=== PATIENT | female | born 1985 | race Caucasian/White ===

== ENCOUNTER 2025-08-16 19:09 | Emergency (ER) | payer MEDICAID ==
[~2025-08-16] VITALS: Ht 157.5 cm; Wt 97.8 kg
[2025-08-16 20:03] LABS: MEAN PLATELET VOLUME 7.2 FL (7.4-10.4); RED CELL DISTRIBUTION WIDTH 12.8 % (11.5-14.5)
[2025-08-16 20:19] LABS: CREATININE 0.81 MG/DL (0.40-0.90); TOTAL CARBON DIOXIDE 31.4 MMOL/L (24-32); eCRCL 74 ML/MIN; eGFR 79 ML/MIN
[2025-08-16 20:39] LABS: URINE HCG NEGATIVE (NEG)
[2025-08-16 20:55] LABS: LEUKOCYTE ESTERASE ,URINE NEGATIVE (Neg); NITRITES, URINE NEGATIVE (Neg); OCCULT BLOOD,URINE LARGE (Neg)
[2025-08-16 21:21] LABS: UA COLLECTION TYPE CLN CATCH MIDSTREAM
[2025-08-16 21:25] LABS: SQUAMOUS EPITHELIAL CELL,UR NONE SEEN /LPF (FEW)
--- NOTE | 2025-08-16 22:33 | RADIOLOGY REPORT ---
Exam: CT CT ABDOMEN PELVIS History: Left flank pain Comparison Study: None TECHNIQUE: Multidetector CT of the abdomen and pelvis was performed from lung bases to pubic symphysis. Imaging was performed without IV contrast. Axial, coronal, and sagittal multiplanar reformats were obtained from the axial data set by the technologist. RADIATION DOSE: CTDI vol 34.7 mGy. DLP 1713.9 mGy.cm Findings: Limited evaluation of the solid organs in the absence of IV contrast. Lungs: The lung bases are clear. Liver: Unremarkable. Spleen: Small splenule. Pancreas: Unremarkable. Gallbladder: Unremarkable. Adrenals: Unremarkable Kidneys: Bilateral nonobstructing nephrolithiasis. No hydronephrosis. Pelvic Viscera: Punctate calculus is seen within the dependent aspect of the urinary bladder. Vasculature: Unremarkable. Retroperitoneum: Unremarkable. Bowel: No bowel obstruction. The appendix is normal. Portions of the bowel are decompressed, limiting assessment. Musculoskeletal: Unremarkable. Soft tissues: Unremarkable Impression: 1. No obstructing renal calculus. 2. Incidental findings as detailed.
--- NOTE | 2025-08-16 22:36 | Physician Documentation ---
History of Present Illness ~ Chief Complaint: Flank Pain Stated Complaint: KINDEY PAIN Time Seen by MD: 21:52 Mode of Arrival: POV HPI This is a 40-year-old female with a history of kidney stones who presents with left-sided flank pain for the past several days radiating to groin and dysuria with hematuria today. Patient reports no fever, chills, or other systemic symptoms. Patient reports no other acute symptoms or concerns. Medication Reconciliation Allergies: Coded Allergies: No Known Allergies (Unverified , 08/16/25) Scheduled Ibuprofen (Ibuprofen), 1 TAB PO Q8H Past Medical History Past Medical History: Kidney Stones Review of Systems ROS As stated above in the HPI, otherwise all systems are reviewed and negative. Physical Exam Vital Signs: Temperature: 98.2, Source: Oral, Heart Rate: 112, Respiratory Rate: 17, BP: 126/89, Pulse Oximetry: 97, Weight: 97.800 Physical Exam VITALS: Reviewed and as above. GENERAL: Alert, nontoxic appearing, no apparent distress. RESPIRATORY: No increased work of breathing, no respiratory distress, speaking in full clear sentences, clear lung sounds in all avelar CV: Regular rate and rhythm no murmur BACK: No CVA tenderness GI: Soft, nontender, no rebound, no guarding Progress Results/Orders Results/Orders Orders - JOSEFINA MATHEW TYPER Ct Abdomen Pelvis (08/16/25 21:55) Completed Orders - JOSEFINA MATHEW TYPER Ct Abdomen Pelvis (08/16/25 21:55) Ketorolac Trometh 15mg/Ml Vial (Toradol (08/16/25 22:20) Vital Signs 08/16/25 08/16/25 08/16/25 19:37 21:55 22:57 Temp 98.2 98.6 Pulse 112 99 Resp 17 18 B/P (MAP) 126/89 122/86 Pulse Ox 97 99 Laboratory Tests Test 08/16/25 19:52 08/16/25 20:20 White Blood Count 10.4 Red Blood Count 4.87 Hemoglobin 14.5 Hematocrit 40.3 Mean Corpuscular Volume 82.8 Mean Corpuscular Hemoglobin 29.7 Mean Corpuscular Hemoglobin Concent 35.9 Red Cell Distribution Width 12.8 Platelet Count 347 Mean Platelet Volume 7.2 L Neutrophils (%) (Auto) 62.6 Lymphocytes (%) (Auto) 28.4 Monocytes (%) (Auto) 6.1 Eosinophils (%) (Auto) 2.2 Basophils (%) (Auto) 0.7 Neutrophils # (Auto) 6.5 Lymphocytes # (Auto) 3.0 Monocytes # (Auto) 0.6 Eosinophils # (Auto) 0.2 Basophils # (Auto) 0.1 CBC Comment Sodium Level 139 Potassium Level 3.8 Chloride Level 102 Carbon Dioxide Level 31.4 Anion Gap 6 L Blood Urea Nitrogen 13 Creatinine 0.81 Estimated GFR/1.73 m2 79 BUN/Creatinine Ratio 16.0 Glucose Level 140 H Calcium Level 9.4 Total Bilirubin 0.3 Aspartate Amino Transf (AST/SGOT) 21 Alanine Aminotransferase (ALT/SGPT) 27 Alkaline Phosphatase 95 Total Protein 8.5 H Albumin 3.9 Globulin 4.6 H Albumin/Globulin Ratio 0.8 L Lipase 28 Chemistry Comments Urine Specimen Description Cln catch midstream Urine Color Yellow Urine Clarity Clear Urine pH 6.0 Urine Specific [place] 1.025 Urine Protein Negative Urine Glucose (UA) Negative Urine Ketones 15 H Urine Occult Blood Large H Urine Nitrite Negative Urine Bilirubin Negative Urine Urobilinogen 0.2 Urine Leukocyte Esterase Negative Urine RBC 10-20 Urine WBC 0-4 Urine Squamous Epithelial Cells None seen Urine Bacteria Few Urine Culture Indicated Not ind Volume Urine Centrifuged 10 ml Urine HCG, Qualitative Negative Urine Comment EKG/XRAY/CT/US/VASC/MRI CT : Impression Exam: CT ABDOMEN PELVIS Exam: CT CT ABDOMEN PELVIS History: Left flank pain Comparison Study: None TECHNIQUE: Multidetector CT of the abdomen and pelvis was performed from lung bases to pubic symphysis. Imaging was performed without IV contrast. Axial, coronal, and sagittal multiplanar reformats were obtained from the axial data set by the technologist. RADIATION DOSE: CTDI vol 34.7 mGy. DLP 1713.9 mGy.cm Findings: Limited evaluation of the solid organs in the absence of IV contrast. Lungs: The lung bases are clear. Liver: Unremarkable. Spleen: Small splenule. Pancreas: Unremarkable. Gallbladder: Unremarkable. Adrenals: Unremarkable Kidneys: Bilateral nonobstructing nephrolithiasis. No hydronephrosis. Pelvic Viscera: Punctate calculus is seen within the dependent aspect of the urinary bladder. Vasculature: Unremarkable. Retroperitoneum: Unremarkable. Bowel: No bowel obstruction. The appendix is normal. Portions of the bowel are decompressed, limiting assessment. Musculoskeletal: Unremarkable. Soft tissues: Unremarkable Impression: 1. No obstructing renal calculus. 2. Incidental findings as detailed. Electronically Signed by:DOUG BURR MD Date & Time: 08/16/252229 Dictated by: DOUG BURR MD Dictation date and time: 08/16/252229 I have reviewed and agree with the radiology report. I have reviewed and interpreted the imaging as: No intraperitoneal free air, no significant hydronephrosis Medical Decision Making Findings This 40-year-old female with a history of kidney stones presented with left flank pain, dysuria, and hematuria without fever, chills, or other systemic symptoms, physical exam was benign without abdominal that has or CVA tenderness. Lab work was reassuring without evidence of infection or metabolic or electrolyte abnormality, urinalysis significant for hematuria without evidence of urinary tract infection. Imaging demonstrated evidence of punctate urolithiasis including stones in bladder, I suspect patient is passing kidney stones is origin of pain. Patient medicated for pain in the emergency department and discharged with Rx for pain medication. Patient is otherwise well-appearing with remainder of physical exam benign and is appropriate for out patient follow up. Patient provided care instructions return to care precautions, and follow up instructions which she verbalized understanding. Diff Dx GI Bleed:Consideration: Include: Gastroenteritis, Inflammatory BD, Neli-Mo syndrome, Meckel's diverticulum Diff Dx Pain:Considerations: Include: Appendicitis, Bowel obstruction, Ch olangitis, Cholecystitis, Cholelithasis, Constipation, Diverticular disease, Ectopic , Gastritis/PUD, Gastroenteritis, GI hemorrhage, Hernia, Hepatitis, Inflammatory BD, Ischemic bowel, Mass, Ovarian cyst/torsion, Pancreatitis, Trauma, intraabdominal, Urinary obstruction, Urinary tract infection, Urolithiasis Diff Dx N/V/D:Considerations: Include: Diverticulitis, Electrolyte imbalance, Food poisoning, Gastroenteritis, GE reflux, GI bleed, Inflammatory BD, Urinary obstruction, UTI Diff Dx Rectal:Considerations: Unlikely: Fissure, Fistula, Foreign body, Impaction, Perirectal abscess, Rectal prolapse, Subcutaneous abscess, Thrombosed hemorrhoid, Ulcer, UTI, Other Departure Time of Disposition: 22:43 Disposition: 01 HOME / SELF CARE / HOMELESS Impression: Primary Impression: Calculus of kidney Condition: Improved Discharge Instructions: Kidney Stones Additional Instructions: It appears you are passing kidney stones, imaging did not demonstrate any evidence of an obstructing kidney stone. Please use the prescribed ibuprofen as needed for pain, follow up with your primary care provider if pain continues more than a few days. Please follow up with your primary care provider in the next few days. Please return to the emergency department for any new or worsening concerning symptoms including but not limited to intolerable pain or if you develop a fever. Referrals: NO PRIMARY CARE PROVIDER (PCP) Prescriptions Ibuprofen (Ibuprofen) 800 Mg Tablet 1 TAB PO Q8H for pain for 10 Days, #30 TAB 0 Refills Prov: JOSEFINA MATHEW 08/16/25 Education Educated: Patient Educated regarding: diagnosis, treatment, prognosis, need for follow up Signature Scribe Signature: No scribe Attestation: The note accurately reflects work and decisions made by me.NITIN Pinto 08/17/25 12:44 JOSEFINA MATHEW Aug 16, 2025 22:36
[2025-08-16] MEDS: ketorolac trometh 15mg/ml vial 15 MG/ML ML IM ONE (22:39)
[2025-08-16] MEDS ORDERED: IBUP-1986 PO (22:45)
[2025-08-16 22:57] VITALS: BP 122/86; PULSE 99; RESP 18; TEMP 98.6; O2SAT 99
== END 2025-08-16 22:58 | disposition home or self-care (01) ==
LOC: ER 19:10
DX: N20.0 Calculus of kidney (principal); Z87.442 Personal history of urinary calculi; Z79.899 Other long term (current) drug therapy
CPT/HCPCS: 36415; 74176; 80053; 81001; 81025; 83690; 85025; 96372; 99285; J1885